=== PATIENT | male | born 1965 | race Caucasian/White ===

== ENCOUNTER 2019-07-26 07:06 | Outpatient (CLI) | payer BC, SELFPAY ==
--- NOTE | ~2019-07-26 | XR_ITS ---
EXAMINATION: XR shoulder LT min 2V DATE: 07/26/2019 07:24 INDICATION: Left shoulder pain. TECHNIQUE: 4 views of left shoulder were obtained. COMPARISON: None. FINDINGS: Bone alignment is normal. No fracture. Glenohumeral joint is normal. There is mild acromioc lavicular joint osteoarthritis. IMPRESSION: 1. Mild acromioclavicular joint osteoarthritis. Reviewed, dictated and finalized at location E.
== END 2019-07-26 07:07 | disposition home or self-care (01) ==
LOC: ANHIMG 07:09
PROVIDERS: PCP Family Medicine; Visit Provider Family Medicine
DX: M19.011 Primary osteoarthritis, right shoulder (principal)
CPT/HCPCS: 73030

== ENCOUNTER → 2019-11-04 15:17 | Outpatient (CLI) | payer BC, SELFPAY ==
--- NOTE | ~2019-11-04 | MR_ITS ---
EXAMINATION: MR shoulder LT wo con DATE: 11/04/2019 16:34 INDICATION: Left shoulder pain. TECHNIQUE: Magnetic resonance imaging (MRI) of the left shoulder was performed without intravenous co ntrast. The patient was unable to continue for postcontrast imaging. Sequences included axial T1-weig hted FSE, T1-weighted FS FSE, and T2-weighted FS FSE and sagittal oblique and coronal oblique T2-weig hted FS FSE and T1-weighted FSE and COMPARISON: Left shoulder radiograph 07/26/2019 FINDINGS: Coracoacromial arch: The acromion undersurface is curved in morphology (type II). There is mild acromioclavicular joint os teoarthritis. There is mild subacromial/subdeltoid bursitis. Rotator cuff: There is an articular sided tear of supraspinatus and infraspinatus tendons measuring 7 mm anterior t o posterior by 70% tendon thickness. Teres minor tendon is normal. There is mild subscapularis tendin opathy. There is no asymmetric fatty atrophy of the rotator cuff muscle bellies. Biceps tendon and glenoid labrum: Biceps tendon is in bicipital groove. Intra-articular biceps tendon is normal. Glenoid labrum is inta ct. Fluid: There is no glenohumeral joint effusion. Bones/cartilage: Glenoid cartilage is normal. Humeral head cartilage is normal. IMPRESSION: 1. Articular-sided, partial-thickness tear of supraspinatus and infraspinous tendons. 2. Mild subacromial/subdeltoid bursitis. 3. Mild acromioclavicular joint osteoarthritis. Reviewed, dictated and finalized at location A. IMPRESSION: 1. Articular-sided, partial-thickness tear of supraspinatus and infraspinous te ndons. 2. Mild subacromial/subdeltoid bursitis. 3. Mild acromioclavicular joint osteoarthritis.
[2019-11-04 15:55] LABS: Estimated Glomerular Filt Rate > 60
== END ==
DX: M25.512 Pain in left shoulder (principal); S46.012A Strain of muscle(s) and tendon(s) of the rotator cuff of left shoulder, initial encounter; M75.52 Bursitis of left shoulder; M19.012 Primary osteoarthritis, left shoulder
CPT/HCPCS: 73221

== ENCOUNTER → 2020-03-08 14:30 | Outpatient (REF) | payer BC, SELFPAY | LOC: ANHLAB 14:30 | PROVIDERS: Family Provider Family Medicine; PCP Family Medicine; Visit Provider Nurse Practitioner | DX: L98.9 Disorder of the skin and subcutaneous tissue, unspecified (principal) | CPT/HCPCS: 88305 ==

== ENCOUNTER 2022-03-20 01:23 | Day surgery (SDC) | payer BC, SELFPAY ==
[2022-03-06 15:53] VITALS: BMI 25.3
--- NOTE | 2022-03-19 13:06 | PM.HPGS ---
History of Present Illness History of Present Illness Consent: Risks, benefits, and alternatives have been discussed and questions answered. Patient agrees to proceed with procedure. Chief complaint: abnormal bowel movements, constipation, diarrhea Narrative: Matteo Burns is a 56 year old male Who Reports abnormal bowel movements x 6 months. He reports intermittent diarrhea, constipation and blood in stools. Review of Systems Review of Systems: All systems reviewed & are unremarkable except as noted in HPI and below PMFSH Past Medical History Medical History Skin lesion Family History Family History Mother Psoriasis Cancer Sibling Lupus Grandparent Multiple sclerosis Social History Social History Years smoked: 3 Smoking status: Never smoker Tobacco type: cigarettes Smoking end date: 02/16/85 Alcohol intake: current Drinks per week: 2 Substance use: never Substance use type: does not use Living arrangements: with family Occupation/Education: occupation Gender identity (if verbalized by the patient): Male Sexual Orientation (if Verbalized by the Patient): Straight or Heterosexual Spiritual care concerns: No Meds Home Medications and Allergies Home Medications Medication Instructions Recorded Confirmed Type pseudoephedrine-ibuprofen 30 1 cap PO HS PRN Sinus Symptoms 06/22/19 03/06/22 History mg-200 mg capsule (Advil Cold and Sinus) calcipotriene 0.005 % topical cream 1 applic topical BID #60 grams 12/10/20 03/06/22 Rx tavaborole 5 % topical solution 1 applic topical DAILY PRN TOENAIL 04/16/21 03/06/22 History with applicator (Kerydin) FUNGUS amino acids 1 tablet PO DAILY 03/06/22 03/06/22 History clotrimazole 1 % topical cream 1 applic topical BID 03/06/22 03/06/22 History (Lotrimin AF (clotrimazole)) glucosamine sulf dipot 1 cap PO DAILY 03/06/22 03/06/22 History chlr,msm,chond 550 mg-C 30 mg-idalia 1 mg capsule (Glucosamine Chondroitin) [id number] 120 mcg-lutein 1 tablet PO DAILY 03/06/22 03/06/22 History 150 mcg-herb 50 mg chewable tablet (Alive Men's 50 Plus Multivitamin) naproxen sodium 220 mg capsule 220 mg PO DAILY 03/06/22 03/06/22 History (Aleve) urea-lactic acid-propylene glycol 1 ml topical DAILY 03/06/22 03/06/22 History topical solution (Kerasal Fungal Nail Renewal topical solution) Allergies Allergy/AdvReac Type Severity Reaction Status Date / Time No Known Allergies Allergy Verified 03/20/22 07:29 Exam Const: General: alert Orientation/consciousness: patient oriented x3 Resp: Auscultation: clear to auscultation bilaterally Cardio: Rhythm: regular rhythm GI: GI Palp: Yes Soft to palpation and No Tenderness to palpation present (GI) Neuro: General: patient oriented x3 Assessment and Plan Assessment and plan (1) Change in bowel habits: Code(s): R19.4 - Change in bowel habit Status: Acute Assessment and Plan: Colonoscopy with possible biopsy or polypectomy or cautery or injection of substances.
[2022-03-20 07:40] VITALS: BP 151/91; PULSE 57; RESP 20; TEMP 35.7; O2SAT 98; BMI 25.4
[2022-03-20] MEDS: LACTATED RINGERS 1,000 ML 150 ML IV CONT (07:43)
--- NOTE | 2022-03-20 07:54 | WPDANESEPPF ---
Anes - Initial Pre Proc Eval Procedure: Operation Date: 03/20/22 08:30 Proposed Procedures p Colonoscopy - Suhas Middleton MD Date/Time: 03/20/22 07:54 Surgeon: Suhas Middleton MD Pre Op Diagnosis: abnormal bowel movements, constipation, diarrhea Patient Data Age: 56 Gender: M Height: 2.01 m Weight: 102.7 kg Last Vital Signs Temp 96.2 F L 03/20/22 07:40 Pulse 57 L 03/20/22 07:40 Resp 20 03/20/22 07:40 BP 151/91 H 03/20/22 07:40 Pulse Ox 98 03/20/22 07:40 O2 Del Method Room Air 03/20/22 07:40 Allergies Allergy/AdvReac Type Severity Reaction Status Date / Time No Known Allergies Allergy Verified 03/20/22 07:29 Home Medications Medication Instructions Recorded Confirmed Type pseudoephedrine-ibuprofen 30 1 cap PO HS PRN Sinus Symptoms 06/22/19 03/06/22 History mg-200 mg capsule (Advil Cold and Sinus) calcipotriene 0.005 % topical cream 1 applic topical BID #60 grams 12/10/20 03/06/22 Rx tavaborole 5 % topical solution 1 applic topical DAILY PRN TOENAIL 04/16/21 03/06/22 History with applicator (Kerydin) FUNGUS amino acids 1 tablet PO DAILY 03/06/22 03/06/22 History clotrimazole 1 % topical cream 1 applic topical BID 03/06/22 03/06/22 History (Lotrimin AF (clotrimazole)) glucosamine sulf dipot 1 cap PO DAILY 03/06/22 03/06/22 History chlr,msm,chond 550 mg-C 30 mg-idalia 1 mg capsule (Glucosamine Chondroitin) [id number] 120 mcg-lutein 1 tablet PO DAILY 03/06/22 03/06/22 History 150 mcg-herb 50 mg chewable tablet (Alive Men's 50 Plus Multivitamin) naproxen sodium 220 mg capsule 220 mg PO DAILY 03/06/22 03/06/22 History (Aleve) urea-lactic acid-propylene glycol 1 ml topical DAILY 03/06/22 03/06/22 History topical solution (Kerasal Fungal Nail Renewal topical solution) Patient hx anesthesia problems: none Family hx anesthesia problems: none Results Review: All pre-operative results and documents have been reviewed as part of the pre-operative evaluation. [facility] Past Medical History Medical History Skin lesion Family History Family History Mother Psoriasis Cancer Sibling Lupus Grandparent Multiple sclerosis Social History Social History Years smoked: 3 Smoking status: Never smoker Tobacco type: cigarettes Smoking end date: 02/16/85 Alcohol intake: current Drinks per week: 2 Substance use: never Substance use type: does not use Living arrangements: with family Occupation/Education: occupation Gender identity (if verbalized by the patient): Male Sexual Orientation (if Verbalized by the Patient): Straight or Heterosexual Spiritual care concerns: No Anes - Eval Final PreProcedure Day of Procedure 03/20/22 07:54 Patient weight: normal Heart: regular rate and rhythm Lungs: clear to auscultation Airway: Mallampati scale class II Neurological: alert and oriented Last oral intake: >/= 8 hours ASA classification: II Emergent: no Anesthetic plan: proceed Anesthesia type and monitoring: general GIVS and standard monitoring Results Review: All pre-operative results and documents have been reviewed as part of the pre-operative evaluation. Informed Consent: The patient's anesthetic plan and its attendant risks and benefits were discussed with the patient/family/POA. Questions were solicited and answers provided to the satisfaction of the patient/family/POA.
[2022-03-20 08:48] VITALS: BP 117/84; PULSE 53; RESP 24; O2SAT 100
[2022-03-20 08:58] VITALS: BP 117/78; PULSE 66; RESP 12; O2SAT 100
[2022-03-20 09:08] VITALS: BP 122/84; PULSE 53; RESP 21; O2SAT 97
== END 2022-03-20 09:18 | disposition home or self-care (01) ==
PROVIDERS: PCP Family Medicine; Visit Provider Internal Medicine Gastroenterology
PROC: 0DJD8ZZ Inspection of Lower Intestinal Tract, Via Natural or Artificial Opening Endoscopic (ICD-10-PCS; CPT 45378; principal; 2022-03-20 08:30)
DX: R19.7 Diarrhea, unspecified (principal); K59.00 Constipation, unspecified; K64.8 Other hemorrhoids
CPT/HCPCS: 45378; J2704; J7120